=== PATIENT | female | born 1985 | race Asian ===

== ENCOUNTER 2022-05-27 18:13 | Emergency (ER) | payer MEDICAID ==
[~2022-05-27] VITALS: Ht 162.6 cm; Wt 43.1 kg
--- NOTE | 2022-05-27 19:15 | NUR ---
URINE COLLECTED AND SENT TO LAB
--- NOTE | 2022-05-27 19:24 | NUR ---
COVID ANTIGEN SWAB COLLECTED AND SENT TO LAB
[2022-05-27 19:35] LABS: ALANINE AMINOTRANSFERASE 28 U/L (12-78); ALBUMIN 4.4 g/dL (3.4-5.0); ALCOHOL, BLOOD < 3 mg/dL (0-0); ALKALINE PHOSPHATASE 44 U/L (46-116); ASPARTATE AMINOTRANSFERASE 32 U/L (15-37); BILIRUBIN,DIRECT 0.3 mg/dL (0.0-0.2); BILIRUBIN,TOTAL 1.3 mg/dL (0.2-1.0); CALCIUM, SERUM 9.1 mg/dL (8.5-10.1); CARBON DIOXIDE 24 mmol/L (21-32); CHLORIDE 100 mmol/L (98-107); CREATININE 0.8 mg/dL (0.6-1.3); GLUCOSE 97 mg/dL (74-106); POTASSIUM 2.9 mmol/L (3.5-5.1); SODIUM SERUM 138 mmol/L (136-145); TOTAL PROTEIN, SERUM 7.4 g/dL (6.4-8.2); UREA NITROGEN, BLOOD 10 mg/dL (7-18)
[2022-05-27 19:45] LABS: ACETAMINOPHEN < 10 ug/ml (10-30)
[2022-05-27 19:48] LABS: BASOPHILS % (AUTO) 0.6 % (0.0-2.0); EOSINOPHILS % (AUTO) 0.7 % (0.0-6.0); HEMATOCRIT 39 % (33-45); HEMOGLOBIN 13.2 g/dL (11.5-14.8); LYMPHOCYTES # (AUTO) 1.2 K/uL (0.8-4.8); LYMPHOCYTES % (AUTO) 25.8 % (20.0-44.0); MEAN CORPUSCULAR HGB CONC 34 g/dl (31.0-36.0); MEAN CORPUSCULAR VOLUME 95 fL (82-100); MONOCYTES # (AUTO) 0.3 K/uL (0.1-1.30); MONOCYTES % (AUTO) 7.2 % (2.0-12.0); NEUTROPHILS # (AUTO) 3.2 K/uL (1.8-8.9); NEUTROPHILS % (AUTO) 65.7 % (43.0-81.0); PLATELET COUNT (AUTO) 210 K/uL (150-450); RED BLOOD CELL COUNT(AUTO) 4.16 MIL/uL (4.0-5.2); WHITE BLOOD COUNT (AUTO) 4.8 K/uL (4.3-11.0)
[2022-05-27 20:16] LABS: BILIRUBIN,URINE SMALL (NEGATIVE); COLOR,URINE YELLOW (YELLOW); LEUKOCYTE ESTERASE ,URINE NEGATIVE (NEGATIVE); NITRITE, URINE NEGATIVE (NEGATIVE); PH,URINE 6.5 (5.0-8.0); PROTEIN,URINE NEGATIVE (NEGATIVE); UGLUCOSE NEGATIVE (NEGATIVE)
[2022-05-27 20:29] LABS: BACTERIA,URINE RARE /HPF (None Seen); MUCUS,URINE Moderate /LPF (None Seen); WBC,URINE 0-2 /HPF (0-3)
[2022-05-27] MEDS ORDERED: IV NS 0.9% 1,000 ML BAG IV ONE (21:00)
[2022-05-27] MEDS ORDERED: POTASSIUM CL. PREMIX PERIPHER. 50 ML ONE ×3 (21:01→23:21)
[2022-05-27] MEDS: POTASSIUM CL. PREMIX PERIPHER. 50 ML IV SCH ×3 (21:14→23:31)
--- NOTE | 2022-05-27 21:14 | NUR ---
IV LINE ESTABLISHED, [id number]
[2022-05-28] MEDS ORDERED: OLANZAPINE 10 MG VIAL IM ONE ×4 (00:02→19:30)
[2022-05-28] MEDS ORDERED: POTASSIUM CL. PREMIX PERIPHER. 50 ML ONE (00:58)
[2022-05-28] MEDS: POTASSIUM CL. PREMIX PERIPHER. 50 ML IV SCH (01:00)
--- NOTE | 2022-05-28 01:10 | NUR ---
JAYSHREE PAGED NO ETA
--- NOTE | 2022-05-28 02:21 | NUR ---
IV removed. Catheter intact and site benign. Pressure and 4x4 applied to site. No bleeding noted.
--- NOTE | 2022-05-28 03:35 | NUR ---
patient is not responding at this time. Pt does not have medical insurance on file. please contact spouse/ and get insurance informatio or have admiting apply for presumptive medical. patient should receive additional medication in the morning and be evaluated later in the day.
--- NOTE | 2022-05-28 08:16 | NUR ---
Sleeping, Respirations even/unlabored
--- NOTE | 2022-05-28 10:00 | NUR ---
Awake- updated with plan of care- cooperative at this time. Breakfast given ate 100%
--- NOTE | 2022-05-28 15:25 | NUR ---
(Darren) at bedside updated with plan of care
--- NOTE | 2022-05-28 16:23 | NUR ---
[facility] CALLED [facility] TO INTAKE AT [facility] [phone]
--- NOTE | 2022-05-28 16:31 | NUR ---
FAX TO [facility] [phone] PHONE [phone]
--- NOTE | 2022-05-28 17:57 | NUR ---
PT ACCEPTED TO [facility] UNDER DR[address] ESPINO TO ROOM [address] E[address] UNIT. PLEASE CALL [phone] FOR REPORT.
--- NOTE | 2022-05-28 18:15 | NUR ---
[facility] CALLED FOR TRANSPORT ETA OF 90 MINS. REQUESTED FEMALE ATTENDANT.
[2022-05-28] MEDS ORDERED: POTASSIUM CHLORIDE 20 MEQ TAB.PRT.SR PO ONE ×2 (18:30→19:29)
--- NOTE | 2022-05-28 19:24 | NUR ---
CALLED [facility] FOR REPORT, ON HOLD
--- NOTE | 2022-05-28 19:33 | NUR ---
Transfer Information Accepted to: [facility] Transfer MD: Law Accepting MD:Ted Room: [address] Transport unit:[facility] unit [address] Condition: Stable for Transfer Accepting personnel in [facility]:Denia
--- NOTE | 2022-05-28 19:39 | NUR ---
REPORT GIVEN TO GREGORIA LALA [facility]
[2022-05-28 19:45] VITALS: BP 115/89
== END 2022-05-28 19:45 ==
LOC: ER 18:19
DX: F29 Unspecified psychosis not due to a substance or known physiological condition (principal); F20.9 Schizophrenia, unspecified; E87.6 Hypokalemia; E86.0 Dehydration; R82.4 Acetonuria; R17 Unspecified jaundice; Z68.1 Body mass index [BMI] 19.9 or less, adult; Z20.822 Contact with and (suspected) exposure to COVID-19
CPT/HCPCS: 99285; 96365; 96366 ×2; 85025; 80048; 82550; 80076; 84703; 81001; 36415; 82553; 87426; 80143; 80320; 80307; 96372 ×2; J7030 ×2; J3480 ×4; C9803; J3490 ×2; G0480